=== PATIENT | male | born 1965 | race African-American/Black ===

== ENCOUNTER 2016-12-07 08:29 | Inpatient (IN) | payer MEDICAID, OTHER ==
[~2016-12-07] VITALS: Ht 175.3 cm; Wt 103.7 kg
[2016-12-07] MEDS ORDERED: LISI-660 PO (09:03)
[2016-12-07] MEDS ORDERED: SIMV5TAB6 PO (09:03)
[2016-12-07] MEDS ORDERED: AMLO2.5T PO (09:03)
[2016-12-07] MEDS ORDERED: HYDR25TA PO (09:03)
[2016-12-07 10:36] LABS: BASOPHILS % (AUTO) 0.4 % (0.0-2.0); EOSINOPHILS % (AUTO) 0.6 % (1.0-6.0); HEMATOCRIT 44.7 % (41-53); HEMOGLOBIN 14.8 g/dL (13.5-17.5); LYMPHOCYTES # (AUTO) 1.4 K/uL (1.0-4.8); LYMPHOCYTES % (AUTO) 23.7 % (22.0-44.0); MEAN CORPUSCULAR HEMOGLOBIN 29.4 pg (26.0-34.0); MEAN CORPUSCULAR HGB CONC 33.1 G/dL (31.0-37.0); MEAN CORPUSCULAR VOLUME 89 fL (80-100); MONOCYTES # (AUTO) 0.5 K/uL (0.1-1.0); MONOCYTES % (AUTO) 7.6 % (2.0-9.0); NEUTROPHILS # (AUTO) 4.1 K/uL (1.8-7.7); NEUTROPHILS % (AUTO) 67.7 % (40.0-70.0); PLATELET COUNT (AUTO) 293 K/uL (150-450); RED BLOOD CELL COUNT(AUTO) 5.03 MIL/uL (4.50-5.90); RED CELL DISTRIBUTION WIDTH 12.7 % (11.5-14.5); WHITE BLOOD COUNT (AUTO) 6.1 K/uL (4.5-11.0)
[2016-12-07 10:44] LABS: ANION GAP 8 mmol/L (8-16); CALCIUM, TOTAL 9.3 mg/dL (8.8-10.5); CARBON DIOXIDE 29 mmol/L (22-29); CHLORIDE 101 mmol/L (98-107); CREATININE 1.17 mg/dL (0.60-1.30); GLOMERULAR FILTR. RATE CALC > 60 mL/min (>60); SODIUM SERUM 138 mmol/L (136-145); UREA NITROGEN, BLOOD 12 mg/dL (7-18)
[2016-12-07 10:49] LABS: ALANINE AMINOTRANSFERASE 17 U/L (12-78); ASPARTATE AMINOTRANSFERASE 11 U/L (15-37); BILIRUBIN,TOTAL 0.5 mg/dL (0.1-1.0)
[2016-12-07] MEDS ORDERED: ZOLPIDEM TARTRATE 10 MG TABLET PO PRN (11:00)
[2016-12-07] MEDS ORDERED: HALOPERIDOL 5 MG TABLET PO PRN (11:00)
[2016-12-07] MEDS ORDERED: LORazepam 2 MG TABLET PO PRN (11:00)
[2016-12-07] MEDS ORDERED: LORazepam 2 MG TABLET PO ONE (11:15)
[2016-12-07] MEDS ORDERED: HALOPERIDOL 5 MG TABLET PO ONE (11:15)
[2016-12-07 14:28] VITALS: BP 143/73
[2016-12-07] MEDS ORDERED: INFLUENZA VIRUS VACCINE QVS 2016-17 (3YR+)/PF 60 MCG/0.5 ML SYRINGE IM ONE (14:45)
[2016-12-07] MEDS: AmLODIPine BESYLATE 2.5 MG TABLET PO SCH (14:45)
[2016-12-07] MEDS: HYDROCHLOROTHIAZIDE 25 MG TABLET PO SCH (15:05)
[2016-12-07] MEDS: LISINOPRIL 5 MG TABLET PO SCH (15:05)
[2016-12-07 16:21] VITALS: BP 140/80
[2016-12-07] MEDS: QUEtiapine FUMARATE 100 MG TABLET PO SCH (20:22)
[2016-12-08 06:40] VITALS: BP 123/77
[2016-12-08 08:36] VITALS: BP 146/87
[2016-12-08] MEDS: AmLODIPine BESYLATE 2.5 MG TABLET PO SCH ×2 (09:05→16:26)
[2016-12-08] MEDS: LISINOPRIL 5 MG TABLET PO SCH (09:05)
[2016-12-08] MEDS: HYDROCHLOROTHIAZIDE 25 MG TABLET PO SCH (09:06)
[2016-12-08] MEDS ORDERED: ACETAMINOPHEN 325 MG TABLET PO PRN (10:30)
[2016-12-08] MEDS ORDERED: IBUPROFEN 400 MG TABLET PO PRN (10:30)
[2016-12-08 16:13] VITALS: BP 128/72
[2016-12-08] MEDS: QUEtiapine FUMARATE 100 MG TABLET PO SCH (20:47)
[2016-12-09 00:40] VITALS: BP 131/90
[2016-12-09 08:35] VITALS: BP 126/86
[2016-12-09 08:49] LABS: HEMOGLOBIN A1C 5.7 % (4.5-6.2)
[2016-12-09] MEDS ORDERED: HYDROCHLOROTHIAZIDE 25 MG TABLET PO SCH (09:00)
[2016-12-09] MEDS ORDERED: LISINOPRIL 5 MG TABLET PO SCH (09:00)
[2016-12-09] MEDS ORDERED: SIMVASTATIN 5 MG TABLET PO SCH (09:00)
[2016-12-09 09:18] LABS: CHOL/HDL RATIO 3.7 (4.2-7.3)
[2016-12-09] MEDS: AmLODIPine BESYLATE 2.5 MG TABLET PO SCH (09:21)
[2016-12-09] MEDS: HYDROCHLOROTHIAZIDE 25 MG TABLET PO SCH (09:22)
[2016-12-09] MEDS: LISINOPRIL 5 MG TABLET PO SCH (09:22)
[2016-12-09] MEDS ORDERED: QUET50TA PO (12:46)
== END 2016-12-09 14:45 | disposition home or self-care (01) | DRG 750 ==
LOC: EMS 08:30 → B2S 13:01 → EMS 13:29
PROVIDERS: ADMIT Psychiatry & Neurology Psychiatry; ATTEND Psychiatry & Neurology Psychiatry
DX: F25.9 Schizoaffective disorder, unspecified (principal); I10 Essential (primary) hypertension; F32.9 Major depressive disorder, single episode, unspecified; E78.5 Hyperlipidemia, unspecified; F10.10 Alcohol abuse, uncomplicated; F19.10 Other psychoactive substance abuse, uncomplicated; Z79.899 Other long term (current) drug therapy; Z28.21 Immunization not carried out because of patient refusal; Z80.3 Family history of malignant neoplasm of breast
CPT/HCPCS: 83036; 99285; G0480

== ENCOUNTER 2023-10-24 10:22 | Emergency (ER) | payer OTHER ==
[~2023-10-24] VITALS: Ht 172.7 cm; Wt 111.4 kg
[~2023-10-24 10:22] MED LIST: ASPI-1444 PO; LISI-892 PO; METO25XL PO; QUET100T PO; SIMV10TA97 PO
[2023-10-24 10:31] VITALS: TEMP 97.9
[2023-10-24] MEDS ORDERED: APIX5TAB PO (10:45)
[2023-10-24] MEDS ORDERED: FURO40 PO (10:45)
[2023-10-24] MEDS ORDERED: EMPA10TA3 PO (10:45)
[2023-10-24] MEDS ORDERED: LOSA-381 PO (10:45)
[2023-10-24] MEDS ORDERED: METO50 PO (10:45)
[2023-10-24] MEDS ORDERED: DILT60TA3 PO (10:45)
[2023-10-24] MEDS ORDERED: ATOR10TA PO (10:45)
[2023-10-24 11:03] LABS: BASOPHILS % (AUTO) 0.4 % (0.0-2.0); EOSINOPHILS % (AUTO) 0.2 % (1.0-6.0); HEMATOCRIT 35.9 % (41-53); LYMPHOCYTES # (AUTO) 1.5 K/uL (1.0-4.8); LYMPHOCYTES % (AUTO) 17.6 % (22.0-44.0); MEAN CORPUSCULAR HGB CONC 33.5 G/dL (31.0-37.0); MEAN CORPUSCULAR VOLUME 93 fL (80-100); MONOCYTES # (AUTO) 0.7 K/uL (0.1-1.0); MONOCYTES % (AUTO) 8.4 % (2.0-9.0); NEUTROPHILS # (AUTO) 6.4 K/uL (1.8-7.7); NEUTROPHILS % (AUTO) 73.4 % (40.0-70.0); PLATELET COUNT (AUTO) 294 K/uL (150-450); RED BLOOD CELL COUNT(AUTO) 3.87 MIL/uL (4.50-5.90); RED CELL DISTRIBUTION WIDTH 13.3 % (11.5-14.5); WHITE BLOOD COUNT (AUTO) 8.8 K/uL (4.5-11.0)
[2023-10-24] MEDS ORDERED: DILT-39 PO (11:13)
[2023-10-24] MEDS ORDERED: HYDROCODONE/ACETAMINOPHEN 5-325 MG TABLET PO ONE (11:15)
[2023-10-24 11:27] LABS: TROPONIN I-HIGH SENSITIVITY 10 ng/L (<76)
[2023-10-24 11:28] LABS: B-TYPE NATRIURETIC PEPTIDE 33 pg/mL (0-100)
[2023-10-24 11:31] LABS: ANION GAP 13 mmol/L (8-16); CALCIUM, TOTAL 9.6 mg/dL (8.8-10.5); CARBON DIOXIDE 28 mmol/L (22-29); CHLORIDE 101 mmol/L (98-107); CREATININE 1.05 mg/dL (0.60-1.30); GLOMERULAR FILTR. RATE CALC > 60 mL/min (>60); GLUCOSE,RANDOM 183 mg/dL (70-110); POTASSIUM 4.3 mmol/L (3.5-5.1); SODIUM SERUM 142 mmol/L (136-145); UREA NITROGEN, BLOOD 19 mg/dL (7-18)
[2023-10-24 11:49] LABS: INR 1.1 (0.9-1.1); PROTHROMBIN TIME 11.8 SEC (9.4-11.6)
[2023-10-24 11:51] VITALS: BP 115/71; PULSE 62; RESP 16
[2023-10-24 12:00] LABS: ALANINE AMINOTRANSFERASE 14 U/L (12-78); ALBUMIN 3.8 g/dL (3.4-5.0); ALKALINE PHOSPHATASE 86 U/L (46-116); ASPARTATE AMINOTRANSFERASE 13 U/L (15-37); BILIRUBIN,TOTAL 0.7 mg/dL (0.1-1.0); CREATINE KINASE, TOTAL ONLY 106 U/L (39-308); TOTAL PROTEIN, SERUM 8.5 g/dL (6.4-8.2)
[2023-10-24] MEDS ORDERED: TRAM-559 PO (12:57)
== END 2023-10-24 13:06 | disposition home or self-care (01) ==
LOC: EMS 10:22
DX: M75.02 Adhesive capsulitis of left shoulder (principal); I48.92 Unspecified atrial flutter; F32.A Depression, unspecified; E11.9 Type 2 diabetes mellitus without complications; I10 Essential (primary) hypertension
CPT/HCPCS: 71045; 80053; 82550; 82962; 83880; 84484; 85025; 85610; 85730; 93005; 99285

== ENCOUNTER 2025-04-25 19:41 | Emergency (ER) | payer OTHER ==
[~2025-04-25] VITALS: Ht 172.7 cm; Wt 99.7 kg
[~2025-04-25 19:41] MED LIST changes: +APIX5TAB PO; +ATOR10TA PO; +DILT-39 PO; +EMPA10TA3 PO; +FURO40TA6 PO; +LOSA-381 PO; -METO25XL PO; +METO50 PO; -SIMV10TA97 PO; +TRAM50TA5 PO
[2025-04-25 19:51] VITALS: BP 138/74; PULSE 68; RESP 18; TEMP 98.3; O2SAT 99
== END 2025-04-25 20:53 | disposition left against medical advice (07) ==
LOC: EMS 19:41
DX: Z00.8 Encounter for other general examination (principal); Z53.21 Procedure and treatment not carried out due to patient leaving prior to being seen by health care provider